=== PATIENT | female | born 1960 | race Caucasian/White ===

== ENCOUNTER 2016-07-14 14:11 | Emergency (ER) | payer OTHER ==
[2016-07-14 14:55] LABS: MANUAL DIFF NEEDED? NO
[2016-07-14 15:00] LABS: BASO% 0.6 % (0.0-0.8); EOS# 0.15 X1000 (0.0-0.7); EOS% 1.2 % (0.0-10.0); HEMATOCRIT 40.5 % (37.0-47.0); HEMOGLOBIN 13.1 g/dL (12.0-16.0); IMM GRAN# 0.11 X1000 (0.0-0.04); IMM GRAN% 0.9 % (0.0-0.5); LYMPH# 3.26 X1000 (1.2-3.4); LYMPH% 26.4 % (20.5-51.1); MCH 26.7 PG (27-31); MCHC 32.3 g/dL (33-37); MCV 82.5 FL (81-99); MONO% 4.9 % (1.7-9.3); MPV 11.1 FL (7.4-10.4); PLT 251 X1000 (130-400); RBC 4.91 XMIL (4.2-5.4)
[2016-07-14] MEDS ORDERED: G.I. COCKTAIL PO ONE (15:10)
[2016-07-14 15:21] LABS: AGAP 15; ALKALINE PHOSPHATASE 95 U/L (32-104); AMYLASE 43 U/L (20-200); BUN 24 mg/dL (8-22); CALCIUM 8.9 mg/dL (8.8-10.2); CHLORIDE 97 mmol/L (98-107); COSMO 293; GOT 13 U/L (10-30); GPT 21 U/L (10-36); LIPASE 37 U/L (13-60); POTASSIUM 4.3 mmol/L (3.5-5.1); SODIUM 138 mmol/L (136-145); TCO2 26 mmol/L (25-35); TOTAL BILIRUBIN 0.18 mg/dL (0.20-1.00); TOTAL PROTEIN 7.8 g/dL (6.3-8.3)
[2016-07-14 15:39] LABS: URINE CULTURE NEEDED? NO; URINE MICRO REVIEW NEEDED? NO; URINE SOURCE CLEAN CATCH
[2016-07-14 15:44] LABS: BILIRUBIN URINE NEGATIVE (NEGATIVE); BLOOD URINE NEGATIVE (NEGATIVE); COLOR YELLOW; GLUCOSE URINE 1000 mg/dL (NEGATIVE); LEUKOCYTES URINE NEGATIVE (NEGATIVE); NITRITE URINE NEGATIVE (NEGATIVE); PH URINE 6.5; PROTEIN URINE NEGATIVE (NEGATIVE); SP GRAVITY URINE 1.021; TURBIDITY URINE CLEAR (CLEAR); UR EPITHELIAL CELLS <10 /HPF (<10); URINE BACTERIA NEGATIVE /HPF; URINE RBC <10 /HPF (<10); URINE WBC <10 /HPF (<10); UROBILINOGEN URINE NORMAL (NORMAL)
--- NOTE | 2016-07-14 15:56 | PROVIDER DOCUMENTATION ---
HPI-Abdominal Pain/GI Problem - General Source: patient - History of Present Illness-ABD Nature of Presenting Problems: Pt is a 55 yof who came to the ED with a cc of abdominal pain and bloating. Pt reports she has chronic back pain and had an epidural the other day and ever since then she has been bloated and having abdominal pain. Pt reports she is dehydrated. Abdominal Pain Onset Location: reports: epigastric Pain Radiation: reports: no radiation Quality of Pain: reports: cramping Severity in ED: reports: mild Onset/Duration: reports: 2 days ago Timing: reports: still present Modifying Factors: improves with: nothing Last BM: unsure Rectal Bleeding: reports: none Bruising or Bleeding Gums?: No Similar Symptoms Previously?: No Recently seen or treated by another doctor?: No <Fouzia Geronimo - Last Filed: 07/14/16 16:40> <Capo Grimes - Last Filed: 07/14/16 17:16> - General Chief Complaint: Abdominal Pain Stated Complaint: SEVERE ABD PAIN WITH SWELLING Time Seen by Provider: 07/14/16 14:59 Allergies/Adverse Reactions: Patient Allergies Allergy/AdvReac Type Severity Reaction Status Date / Time tramadol HCl * [From Ultram] Allergy Mild nausea, Verified 07/14/16 15:52 vomiting Corticosteroids Allergy Unknown NAUSEA/VOMI Verified 07/14/16 15:52 (Glucocorticoids) TING narcotics Allergy Intermediate NAUSEA/VOMI Uncoded 07/14/16 15:52 TING Home Medications: Home Medication List Medication Instructions Recorded Confirmed Last Taken Type Metformin [Glucophage] 2,000 mg PO DAILY 05/26/14 07/14/16 04/07/15 History Thyroid,Pork [Nature-Throid] 162.5 mg PO DAILY 04/17/16 07/14/16 Unknown History Carvedilol 12.5 mg PO BID 07/14/16 07/14/16 Unknown History Clonidine [Catapres] 0.3 mg PO TID 07/14/16 07/14/16 Unknown History Cyclobenzaprine [Flexeril] 10 mg PO PRN PRN 07/14/16 07/14/16 Unknown History Duloxetine [Cymbalta] 60 mg PO DAILY 07/14/16 07/14/16 Unknown History Glimepiride 4 mg PO BID 07/14/16 07/14/16 Unknown History Hydrocodone/APAP 7.5 mg/325 mg 1 tab PO PRN PRN 07/14/16 07/14/16 Unknown History [[place]-7.5] Polyethylene Glycol 3350 [Miralax] 17 gm PO DAILY PRN PRN #90 07/14/16 Unknown Rx [email or web address] Trazodone [Desyrel] 100 mg PO HS 07/14/16 07/14/16 Unknown History Review of Systems - Adult - REVIEW OF SYSTEMS - ADULT Constitutional: denies: chills, fever Eyes: reports: no symptoms reported Ears, Nose, Mouth & Throat: denies: epistaxis, mouth/dental pain Cardiovascular: reports: no symptoms reported Respiratory: reports: no symptoms reported Gastrointestinal: reports: abdominal pain. denies: diarrhea, nausea, vomiting Genitourinary: reports: no symptoms reported Musculoskeletal: denies: joint pain, muscle aches Integumentary: reports: no symptoms reported Neurological: reports: no symptoms reported Psychiatric: reports: no symptoms reported Endocrine: reports: no symptoms reported Hematologic/Lymphatic: reports: no symptoms reported Allergic/Immunologic: reports: no symptoms reported All Other Systems: Reviewed and Negative <Fouzia Geronimo - Last Filed: 07/14/16 16:40> Past History - Adult - PAST MEDICAL HISTORY-ADULT Review of Records: reports: Old Records Reviewed, Nursing Assessment Review Major Childhood Illnesses: reports: denies history Cardiovascular: reports: blood clots, HTN, other Respiratory: reports: denies history Gastrointestinal: reports: diverticulosis, GERD, IBS Obstetrical/Gynecological: reports: denies history Genitourinary: reports: denies history Musculoskeletal: reports: denies history, orthopedic injury Neurological: reports: denies history Psychiatric: reports: depression Endocrine/Immune: reports: Diabetes, thyroid disorder Other Conditions: reports: denies history, other - PRIOR SURGERIES/PROCEDURES Surgical/Procedure History: reports: hysterectomy, , hernia repair, orthopedic (extremity), other, appendectomy, cholecystectomy - IMMUNIZATION STATUS Childhood Immunizations: See Nurse Assessment Flu Vaccine: See Nurse Assessment - FAMILY HISTORY Family History: reviewed, not pertinent <Fouzia Geronimo - Last Filed: 07/14/16 16:40> Physical Exam-General - PHYSICAL EXAM-ADULT Initial Vital Signs Reviewed: Yes - CONSTITUTIONAL General Appearance: appears well, alert, obese - EYES Eyes: PERRL/EOMI, pink conjunctivae - HEAD, EARS, NOSE, MOUTH & THROAT HENMT: normocephalic/atraumatic, moist mucous membranes, normal ENT inspection, TMs normal - NECK Neck: non-tender - RESPIRATORY Respiratory: chest non-tender, lungs clear - CARDIOVASCULAR Cardiovascular: normal peripheral pulses, regular rate, rhythm, no edema - GASTROINTESTINAL (ABDOMEN) Abdominal Exam: normal bowel sounds, tenderness (epigastric) - MUSCULOSKELETAL Back Exam: normal inspection Extremity: normal range of motion - SKIN Integumentary: normal turgor - NEUROLOGIC Neurologic: grossly normal - PSYCHIATRIC Psych/Mental Status: normal mood/affect, normal thought content, normal thought process, oriented x 3 <Fouzia Geronimo - Last Filed: 07/14/16 16:40> Progress - PLAN OF CARE/RESULTS Progress/Plan/Lab Results: Vital Signs - 24 hr 07/14/16 14:18 Temperature 98.1 F Pulse Rate 104 H Respiratory 20 Rate Blood Pressure 158/89 O2 Sat by Pulse 100 Oximetry Orders Category Date Time Status ABDOMEN FLAT/UPRIGHT [RAD] Stat Exams 07/14/16 15:10 Ordered AMYLASE [CHEM] Stat Lab 07/14/16 14:45 Completed CBC WITH ELECTRONIC DIFF [HEME] Stat Lab 07/14/16 14:45 Completed COMPREHENSIVE METABOLIC PANEL [CHEM] Stat Lab 07/14/16 14:45 Completed LIPASE [CHEM] Stat Lab 07/14/16 14:45 Completed URINALYSIS W/POSS RFLX CULT [URINALYSIS] Stat Lab 07/14/16 15:01 Completed Lido/Neal Alk/Al&mg Hydrox [G.i. Cocktail] Med 07/14/16 15:10 Discontinued 30 ml PO NOW ONE EKG [EKG] Stat Ther 07/14/16 14:21 Ordered Laboratory Tests 07/14/16 07/14/16 07/14/16 14:45 14:45 15:01 WBC 12.33 H RBC 4.91 Hgb 13.1 Hct 40.5 MCV 82.5 MCH 26.7 L MCHC 32.3 L RDW Std Deviation 14.7 H Plt Count 251 MPV 11.1 H Immature Gran % (Auto) 0.9 H Neut % (Auto) 66.0 Lymph % (Auto) 26.4 Edwards % (Auto) 4.9 Eos % (Auto) 1.2 Baso % (Auto) 0.6 Immature Gran # (Auto) 0.11 H Neut # (Auto) 8.14 H Lymph # (Auto) 3.26 Edwards # (Auto) 0.60 H Eos # (Auto) 0.15 Baso # (Auto) 0.07 Sodium 138 Potassium 4.3 Chloride 97 L Carbon Dioxide 26 Anion Gap 15 BUN 24 H Creatinine 0.9 Estimated GFR/1.73 m2 > 60 BUN/Creatinine Ratio 27 Glucose 331 H Calculated Osmolality 293 Calcium 8.9 Total Bilirubin 0.18 L AST 13 ALT 21 Alkaline Phosphatase 95 Total Protein 7.8 Albumin 4.0 Globulin 3.8 Albumin/Globulin Ratio 1.1 Amylase 43 Lipase 37 Urine Source CLEAN CATCH Urine Color YELLOW Urine Turbidity CLEAR Urine pH 6.5 Ur Specific Wallace 1.021 Urine Protein NEGATIVE Ur Glucose (Stick) 1000 A Ur Ketones (Stick) NEGATIVE Urine Blood NEGATIVE Urine Nitrite NEGATIVE Urine Bilirubin NEGATIVE Urobilinogen Dipstick NORMAL Urine Leukocytes NEGATIVE Urine WBC (Auto) <10 Urine RBC (Auto) <10 U Epithel Cells (Auto) <10 Urine Bacteria (Auto) NEGATIVE - EKG 1 Time of EKG reading by physician:: 15:49 EKG Read and Signed by:: Capo Grimes EKG Interpretation (*Must complete 3 of following elements*): Abnormal Rate: 83 (possible left atrial enlargement; ST and T wave abnormality, consider lateral ischemia; prolonged QT) Rhythm: sinus rhythm with frequent and consecutive premature ventricular complexes <Fouzia Geronimo - Last Filed: 07/14/16 16:40> - REASSESSMENT Reassessment #1 Time Reassessed: 15:10 Status: improving (long discussion about constipation and diet for wt loss/ DM and low carb diet) <Capo Grimes - Last Filed: 07/14/16 17:16> Departure <Fouzia Geronimo - Last Filed: 07/14/16 16:40> - Departure Time of Disposition Order: 17:12 Certified Medical Emergency: Emergent <Capo Grimes - Last Filed: 07/14/16 17:16> - Departure DIAGNOSIS: Obesity (BMI 30-39.9) Constipation Qualifiers: Constipation type: other constipation type Qualified Code(s): K59.09 - Other constipation Diabetes Qualifiers: Diabetes mellitus type: type 2 Diabetes mellitus complication status: with hyperglycemia Diabetes mellitus correction insulin use: without terminologist use Qualified Code(s): E11.65 - Type 2 diabetes mellitus with hyperglycemia Disposition: HOME 01 Condition: Stable Additional Instructions: fu with BS diary with your doctor to determine insulin rx ED Follow Up Instructions: You have been treated by a care provider in the Emergency Department. These instructions are being provided to you so you can have an understanding of how to care for yourself upon discharge. Upon discharge from the Emergency Department, you are responsible for making arrangements for follow-up care by a physician of your choice. Take all prescribed medications as directed. Return to the Emergency Department immediately for any new or worsening symptoms. You may call the Physician Referral phone number at [phone] to obtain a list of Physicians who are taking new patients. Prescriptions: Polyethylene Glycol 3350 [Miralax] 17 gm PO DAILY PRN PRN #90 [email or web address] PRN Reason: Constipation Attestation - Scribe Verification/Attestation Scribe:: Fouzia Geronimo Acting as Scribe for:: Capo Grimes Scribe documention review:: This chart was documented by a scribe and accurately reflects the service the provider performed and the decisions made by the provider. <Fouzia Geronimo - Last Filed: 07/14/16 16:40> Physician Attestation
--- NOTE | 2016-07-14 16:16 | Diag Imaging Result Document ---
PROCEDURE NAME: ABDOMEN FLAT/UPRIGHT - 07/14/2016 FLAT AND UPRIGHT RADIOGRAPH THE ABDOMEN: COMPARISON: 04/09/2015. FINDINGS: There is a fair amount of stool in the colon suggesting possible constipation. There is no obstructive bowel pattern. There is no evidence of large-volume free abdominal gas. IMPRESSION: Suggestion of constipation.
[2016-07-14] MEDS ORDERED: DULCOLAX PO ONE (17:10)
[2016-07-14] MEDS ORDERED: CITRATE OF MAGNESIA PO ONE (17:11)
[2016-07-14 17:35] VITALS: BP 149/90
--- NOTE | 2016-07-15 05:37 | EKG Report ---
Test Performed on : 07/14/2016 2:25:49 PM Test Reason : epigastric pain Blood Pressure : / mmHG Vent. Rate : 104 BPM Atrial Rate : 104 BPM P-R Int : 174 ms QRS Dur : 076 ms QT Int : 332 ms P-R-T Axes : 065 044 065 degrees QTc Int : 436 ms Sinus tachycardia. Possible Left atrial enlargement Borderline ECG When compared with ECG of 12-APR-2015 11:32, Vent. rate has increased BY 47 BPM Unconfirmed Result
== END 2016-07-14 17:35 | disposition home or self-care (01) ==
LOC: ED 14:11
DX: K59.09 Other constipation (principal); E11.65 Type 2 diabetes mellitus with hyperglycemia; E66.9 Obesity, unspecified; R94.31 Abnormal electrocardiogram [ECG] [EKG]; R10.13 Epigastric pain; R14.0 Abdominal distension (gaseous); G89.29 Other chronic pain; M54.9 Dorsalgia, unspecified; R10.816 Epigastric abdominal tenderness; I10 Essential (primary) hypertension; F32.9 Major depressive disorder, single episode, unspecified; Z79.899 Other long term (current) drug therapy; Z86.718 Personal history of other venous thrombosis and embolism
CPT/HCPCS: 74020; 80053; 81001; 82150; 82948; 83690; 85025; 93005